=== PATIENT | female | born 1980 | race Caucasian/White ===

== ENCOUNTER → 2016-06-12 | Outpatient (CLI) | payer OTHER ==
[~2016-06-12] MED LIST: CEPH500T PO; PRENTAB26 PO
== END | disposition home or self-care (01) ==
LOC: C.PAPS 10:19
PROVIDERS: ATTEND Obstetrics & Gynecology
DX: Z01.419 Encounter for gynecological examination (general) (routine) without abnormal findings (principal)

== ENCOUNTER 2017-02-16 16:30 | Emergency (ER) | payer OTHER ==
[~2017-02-16] VITALS: Ht 157.5 cm; Wt 77.2 kg
[2017-02-16 16:45] VITALS: TEMP 36.9; Ht 157.5 cm; Wt 77.2 kg
[2017-02-16 17:45] LABS: BASO % 0.2 %; BASO ABS # 0.02 K/uL (0-0.2); COMPLETE YES; EOS % 0.3 %; HEMATOCRIT 42.7 % (37-47); IG% 0.2 %; LYMPH % 15.1 %; MEAN CELL VOLUME 87.5 fL (80-100); MEAN CORPUSCULAR HEMOGLOBIN 29.9 pg (25-34); MEAN CORPUSCULAR HGB CONC 34.2 g/dl (32-36); MEAN PLATELET VOLUME 8.7 fL (7.4-10.4); MONO % 3.8 %; NEUT % 80.4 %; PLATELET COUNT 260 K/uL (130-400); RED BLOOD COUNT 4.88 M/uL (4.2-5.4); WHITE BLOOD COUNT 12.57 K/uL (4.8-10.8)
[2017-02-16 18:05] LABS: BUN/CREATININE RATIO 21.1 (10-20); CALCIUM 9.3 mg/dl (8.5-10.1); CREATININE 0.67 mg/dl (0.60-1.20); POTASSIUM 3.7 mmol/L (3.5-5.1)
[2017-02-16 18:24] LABS: URINE APPEARANCE CLEAR (CLEAR); URINE BILIRUBIN NEG (NEG); URINE COLOR YELLOW; URINE EPITHELIAL CELL AUTO 0-5 /lpf (0-5); URINE NITRITE NEG (NEG); URINE PH 5.5 (4.5-7.5); URINE SPECIFIC GRAVITY 1.018 (1.000-1.030); UROBILINOGEN NEG (NEG); ZZUR CULT IF INDIC CLEAN CATCH NO
[2017-02-16 18:29] LABS: MANUAL MICROSCOPIC REQUIRED? NO; REVIEW REQ? NO
--- NOTE | 2017-02-16 20:03 | DIAGNOSTIC IMAGING REPORT ---
TRANSVAGINAL HISTORY: 37 years-old Female vaginal bleeding, LLQ paink, 5 wks acute left lower quadrant abdominal pain with . COMPARISON: None available. TECHNIQUE: Multiple real-time sonographic images of the deep pelvic structures were obtained transabdominally and transvaginally assessing grayscale appearance, color and spectral flow. FINDINGS: TRANSABDOMINAL: Heterogeneous appearance of the uterus is noted with multiple intramural fibroids. Endometrium measures 5 mm. Uterus measures 10.9 x 5.4 x 7.3 cm. Intramural fibroids are seen measuring up to 2.5 x 1.7 x 2.6 cm and 3.4 x 2.0 x 2.5 cm, some of which demonstrates some peripheral calcification. Left ovary measures 5.2 x 3.0 x 3.0 cm. Mildly complex cystic structure the left ovary measures 2.6 x 1.9 x 2.1 cm. Arterial inflow and venous outflow documented within the left ovary. Right ovary measures 3.3 x 1.5 x 1.7 cm with arterial inflow and venous outflow documented. TRANSVAGINAL: Uterus measures 9.6 x 6.5 x 7.9 cm, anteflexed. No intrauterine gestation identified. Myometrial heterogeneity is seen. Right ovary measures 4.2 x 1.6 x 3.2 cm there is of increased echogenicity. Arterial inflow documented. Left ovary measures 3.5 x 2.9 x 3.5 cm. Left corpus luteum measures up to 2.8 cm. Left uterine arterial inflow documented. No significant free pelvic fluid. IMPRESSION: 1. No intrauterine or extrauterine gestation identified. In the setting of positive qualitative beta hCG, this may be secondary to early normal , occult ectopic or recent spontaneous . Close follow-up with serial quantitative beta-hCG analysis and ultrasound imaging is needed. 2. Multiple intramural fibroids are seen as above, several of which are complex and partially calcified. 3. No evidence of ovarian torsion. Left corpus luteum, 2.8 cm. The above report was generated using voice recognition software. It may contain grammatical, syntax or spelling errors. Electronically signed by: Yonis Hernandez M.D. 02/16/2017 8:02 PM Dictated Date/Time: 02/16/2017 7:55 PM
[2017-02-16 20:38] VITALS: BP 130/96; PULSE 95; O2SAT 96
--- NOTE | 2017-02-16 20:39 | EMERGENCY ROOM VISIT NOTE ---
History First contact with patient: 17:15 Chief Complaint: ED VAG BLEEDING Stated Complaint: CRAMPING LEFT SIDE BLEEDING - POSSIBLE MISCARRIAGE History of Present Illness The patient is a 37 year old female who presents to the Emergency Room with complaints of vaginal bleeding and pelvic pain. The patient states that she had a positive test earlier this week. Her last menstrual period was 01/11/17. The patient has had some vaginal spotting for the past 2 days with increased bleeding this evening. She reports she has had some intermittent left lower abdominal aching which she rates a 3/10. Patient has seen Alexa Thompson SECURITY OPERATIONS MANAGER in the past. She reports 2 previous pregnancies, both of which went to term. No history of miscarriages. Patient does report a history of fibroids. She denies any urinary symptoms or vomiting. Review of Systems A complete 10 point review of systems was reviewed with the patient with pertinent positives and negatives as per history of present illness. All else were negative. Past Medical/Surgical History Medical Problems: (1) 39 weeks gestation of (2) Advanced maternal age in multigravida (3) AMA (advanced maternal age) multigravida 35+ (4) Gestational age, 21 weeks (5) Gestational diabetes (6) Gestational diabetes mellitus in , insulin controlled (7) Insulin controlled gestational diabetes mellitus in third trimester Family History Cancer Diabetes mellitus FH: heart disease Hypertension Social History Smoking Status: Former Smoker Alcohol Use: none Drug Use: none Marital Status: Housing Status: lives with family Occupation Status: employed Current/Historical Medications No Active Prescriptions or Reported Meds Physical Exam Vital Signs Date Time Temp Pulse Resp B/P (MAP) Pulse Ox O2 Delivery O2 Flow Rate FiO2 02/16/17 20:38 95 18 130/96 96 Room Air 02/16/17 19:24 101 20 127/84 96 Room Air 02/16/17 16:45 36.9 93 16 160/90 98 Room Air Physical Exam VITALS: Vitals are noted on the nurse's note and reviewed by myself. Vital signs stable. GENERAL: This is a 37-year-old female, in no acute distress, nondiaphoretic, well-developed well-nourished. HEART: Regular rate and rhythm without murmurs gallops or rubs. LUNGS: Clear to auscultation bilaterally without wheezes, rales or rhonchi. ABDOMEN: Positive bowel sounds x 4. Soft, nontender to palpation. NEURO: Patient was alert and oriented to person place and time. Medical Decision & Procedures ER Provider Diagnostic Interpretation: TRANSVAGINAL HISTORY: 37 years-old Female vaginal bleeding, LLQ paink, 5 wks acute left lower quadrant abdominal pain with . COMPARISON: None available. TECHNIQUE: Multiple real-time sonographic images of the deep pelvic structures were obtained transabdominally and transvaginally assessing grayscale appearance, color and spectral flow. FINDINGS: TRANSABDOMINAL: Heterogeneous appearance of the uterus is noted with multiple intramural fibroids. Endometrium measures 5 mm. Uterus measures 10.9 x 5.4 x 7.3 cm. Intramural fibroids are seen measuring up to 2.5 x 1.7 x 2.6 cm and 3.4 x 2.0 x 2.5 cm, some of which demonstrates some peripheral calcification. Left ovary measures 5.2 x 3.0 x 3.0 cm. Mildly complex cystic structure the left ovary measures 2.6 x 1.9 x 2.1 cm. Arterial inflow and venous outflow documented within the left ovary. Right ovary measures 3.3 x 1.5 x 1.7 cm with arterial inflow and venous outflow documented. TRANSVAGINAL: Uterus measures 9.6 x 6.5 x 7.9 cm, anteflexed. No intrauterine gestation identified. Myometrial heterogeneity is seen. Right ovary measures 4.2 x 1.6 x 3.2 cm there is of increased echogenicity. Arterial inflow documented. Left ovary measures 3.5 x 2.9 x 3.5 cm. Left corpus luteum measures up to 2.8 cm. Left uterine arterial inflow documented. No significant free pelvic fluid. IMPRESSION: 1. No intrauterine or extrauterine gestation identified. In the setting of positive qualitative beta hCG, this may be secondary to early normal , occult ectopic or recent spontaneous . Close follow-up with serial quantitative beta-hCG analysis and ultrasound imaging is needed. 2. Multiple intramural fibroids are seen as above, several of which are complex and partially calcified. 3. No evidence of ovarian torsion. Left corpus luteum, 2.8 cm. Laboratory Results 02/16/17 17:20 Red Blood Count 4.88, Mean Corpuscular Volume 87.5, Mean Corpuscular Hemoglobin 29.9, Mean Corpuscular Hemoglobin Concent 34.2, Mean Platelet Volume 8.7, Neutrophils (%) (Auto) 80.4, Lymphocytes (%) (Auto) 15.1, Monocytes (%) (Auto) 3.8, Eosinophils (%) (Auto) 0.3, Basophils (%) (Auto) 0.2, Neutrophils # (Auto) 10.10, Lymphocytes # (Auto) 1.90, Monocytes # (Auto) 0.48, Eosinophils # (Auto) 0.04, Basophils # (Auto) 0.02 02/16/17 17:20 Test 02/16/17 17:20 02/16/17 17:50 White Blood Count 12.57 K/uL (4.8-10.8) Red Blood Count 4.88 M/uL (4.2-5.4) Hemoglobin 14.6 g/dL (12.0-16.0) Hematocrit 42.7 % (37-47) Mean Corpuscular Volume 87.5 fL (80-100) Mean Corpuscular Hemoglobin 29.9 pg (25-34) Mean Corpuscular Hemoglobin Concent 34.2 g/dl (32-36) Platelet Count 260 K/uL (130-400) Mean Platelet Volume 8.7 fL (7.4-10.4) Neutrophils (%) (Auto) 80.4 % Lymphocytes (%) (Auto) 15.1 % Monocytes (%) (Auto) 3.8 % Eosinophils (%) (Auto) 0.3 % Basophils (%) (Auto) 0.2 % Neutrophils # (Auto) 10.10 K/uL (1.4-6.5) Lymphocytes # (Auto) 1.90 K/uL (1.2-3.4) Monocytes # (Auto) 0.48 K/uL (0.11-0.59) Eosinophils # (Auto) 0.04 K/uL (0-0.5) Basophils # (Auto) 0.02 K/uL (0-0.2) RDW Standard Deviation 41.4 fL (36.4-46.3) RDW Coefficient of Variation 12.9 % (11.5-14.5) Immature Granulocyte % (Auto) 0.2 % Immature Granulocyte # (Auto) 0.03 K/uL (0.00-0.02) Anion Gap 9.0 mmol/L (3-11) Est Creatinine Clear Calc Drug Dose 110.6 ml/min Estimated GFR () 130.1 Estimated GFR (Non- 112.3 BUN/Creatinine Ratio 21.1 (10-20) Calcium Level 9.3 mg/dl (8.5-10.1) Human Chorionic Gonadotropin, Quant 1054 mIU/mL Urine Color YELLOW Urine Appearance CLEAR (CLEAR) Urine pH 5.5 (4.5-7.5) Urine Specific [place] 1.018 (1.000-1.030) Urine Protein NEG (NEG) Urine Glucose (UA) NEG (NEG) Urine Ketones TRACE (NEG) Urine Occult Blood 2+ (NEG) Urine Nitrite NEG (NEG) Urine Bilirubin NEG (NEG) Urine Urobilinogen NEG (NEG) Urine Leukocyte Esterase NEG (NEG) Urine WBC (Auto) 0 /hpf (0-5) Urine RBC (Auto) 5-10 /hpf (0-4) Urine Hyaline Casts (Auto) 1-5 /lpf (0-5) Urine Epithelial Cells (Auto) 0-5 /lpf (0-5) Urine Bacteria (Auto) NEG (NEG) ED Course The patient was evaluated as above. Labs were drawn and IV access was obtained. Pelvic ultrasound was performed and read by radiology as above. Patient was reevaluated and findings were discussed. Case was discussed with Dr. Ralph of [facility] SECURITY OPERATIONS MANAGER. He recommended that the patient return in 48 hours for repeat quantitative beta-hCG. Discharge instructions were reviewed with the patient. The patient verbalized understanding of my assessment and treatment plan and was discharged home in good condition. Medical Decision Differential diagnosis includes early intrauterine , ectopic , spontaneous , among others. The patient is a 37-year-old female who presents today complaining of vaginal bleeding in the setting of early . Labs revealed a mild leukocytosis, possibly secondary to or stress. Quantitative beta-HCG was found to be 1054. Ultrasound was performed and was inconclusive. Fibroids were noted. Patient is blood type A+ and will not require RhoGAM. The case was discussed with the on-call physician for [facility] SECURITY OPERATIONS MANAGER, who recommended that the patient return here on Sunday evening (02/18/17) for a repeat quantitative beta-hCG. He recommended that the on-call SECURITY OPERATIONS MANAGER be consulted at that time. Findings were discussed and the patient was agreeable to this. Multiple questions were answered. The patient was educated regarding pelvic rest. She was advised to return here for worsening pain, vomiting, worsening bleeding or any other new/concerning symptoms. Based on the patient's presentation and work up, I feel the patient is stable for outpatient treatment. The patient was educated to return to the emergency department for any worsening of their current condition or new/concerning symptoms. She will return here in 48 hours for follow-up. Medication Reconcilliation Current Medication List: was personally reviewed by me Blood Pressure Screening Patient's blood pressure: Elevated blood pressure Blood pressure disposition: Elevated BP felt to be situational Impression Primary Impression: Threatened miscarriage in early Departure Information Dispostion Home / Self-Care Condition GOOD Prescriptions No Active Prescriptions or Reported Meds Referrals Laurie Corbin M.D. (PCP) Aren Ralph M.D. Patient Instructions My [facility] Additional Instructions Return to the emergency department Sunday evening (02/18/17) for a repeat hormone level. Pelvic rest: Nothing in the vagina (tampons, intercourse) until cleared by OB/ CUTTING MACHINE OPERATOR HELPER. Return to the emergency department sooner for worsening bleeding, worsening pain , vomiting or any other new/concerning symptoms.
== END 2017-02-16 21:05 | disposition home or self-care (01) ==
LOC: C.EDB 16:32 → C.EDA 21:05
DX: O20.0 Threatened abortion (principal); Z3A.01 Less than 8 weeks gestation of pregnancy; D25.9 Leiomyoma of uterus, unspecified; Z87.891 Personal history of nicotine dependence; Z83.3 Family history of diabetes mellitus; Z82.49 Family history of ischemic heart disease and other diseases of the circulatory system

== ENCOUNTER 2017-02-18 16:32 | Emergency (ER) | payer OTHER ==
[~2017-02-18] VITALS: Ht 154.9 cm; Wt 77.7 kg
[2017-02-18 16:35] VITALS: TEMP 36.7; Ht 154.9 cm; Wt 77.7 kg
--- NOTE | 2017-02-18 16:56 | EMERGENCY ROOM VISIT NOTE ---
History First contact with patient: 16:35 Chief Complaint: OTHER COMPLAINT Stated Complaint: HORMONE RECHECK History of Present Illness The patient is a 37 year old female who presents to the Emergency Room for a recheck of her quantitative beta hCG. The patient was here 2 days ago due to vaginal bleeding in early and instructed to return here for a repeat hCG. She states that the bleeding has slowed and she now just has a small amount of blood on the toilet paper when wiping. She still has some mild left lower abdominal pain, but states this has improved since she was last seen here. Review of Systems A complete 10 point review of systems was reviewed with the patient with pertinent positives and negatives as per history of present illness. All else were negative. Past Medical/Surgical History Medical Problems: (1) 39 weeks gestation of (2) Advanced maternal age in multigravida (3) AMA (advanced maternal age) multigravida 35+ (4) Gestational age, 21 weeks (5) Gestational diabetes (6) Gestational diabetes mellitus in , insulin controlled (7) Insulin controlled gestational diabetes mellitus in third trimester Family History Cancer Diabetes mellitus FH: heart disease Hypertension Social History Smoking Status: Never Smoker Alcohol Use: none Drug Use: none Marital Status: Housing Status: lives with family Occupation Status: employed Current/Historical Medications No Active Prescriptions or Reported Meds Physical Exam Vital Signs Date Time Temp Pulse Resp B/P (MAP) Pulse Ox O2 Delivery O2 Flow Rate FiO2 02/18/17 17:41 86 20 141/90 97 02/18/17 16:35 36.7 101 20 148/81 98 Room Air Physical Exam VITALS: Vitals are noted on the nurse's note and reviewed by myself. Vital signs stable. GENERAL: This is a 37-year-old female, in no acute distress, nondiaphoretic, well-developed well-nourished. HEART: Regular rate and rhythm without murmurs gallops or rubs. LUNGS: Clear to auscultation bilaterally without wheezes, rales or rhonchi. ABDOMEN: Soft, nontender without masses. NEURO: Patient was alert and oriented to person place and time. Medical Decision & Procedures Laboratory Results Test 02/18/17 16:44 Human Chorionic Gonadotropin, Quant 514 mIU/mL Medical Decision Differential diagnosis includes threatened , spontaneous , bleeding during early , among others. The patient was evaluated as above. The patient was seen by myself 2 days ago. Repeat beta-hCG was performed and was found to be 514, decreased from 1054 two days ago. Case was discussed with the on-call [facility] LINE WORKER, Dr. Fields. She states the office will call the patient this week to schedule a follow-up appointment. She will need weekly beta hCGs until her hCG is 0. Patient was informed of this. She was reassured. She verbalized understanding and was discharged home in good condition. Medication Reconcilliation Current Medication List: was personally reviewed by me Blood Pressure Screening Patient's blood pressure: Elevated blood pressure Blood pressure disposition: Elevated BP felt to be situational Impression Primary Impression: Spontaneous Departure Information Dispostion Home / Self-Care Condition GOOD Prescriptions No Active Prescriptions or Reported Meds Referrals Laurie Corbin M.D. (PCP) Patient Instructions My [facility] Additional Instructions The LINE WORKER office will call you this week to schedule follow-up. Return here for increased pain, very heavy vaginal bleeding, fevers or any other /concerning symptoms.
[2017-02-18 17:41] VITALS: BP 141/90; PULSE 86; O2SAT 97
== END 2017-02-18 17:43 | disposition home or self-care (01) ==
LOC: C.EDB 16:33 → C.EDD 17:43
DX: O03.9 Complete or unspecified spontaneous abortion without complication (principal); Z80.9 Family history of malignant neoplasm, unspecified; Z83.3 Family history of diabetes mellitus; Z82.49 Family history of ischemic heart disease and other diseases of the circulatory system

== ENCOUNTER → 2017-02-24 | Outpatient (CLI) | payer OTHER | END | disposition home or self-care (01) | LOC: C.LAB 10:27 | PROVIDERS: ATTEND Obstetrics & Gynecology | DX: O02.1 Missed abortion (principal) ==

== ENCOUNTER → 2017-02-26 | Outpatient (CLI) | payer OTHER | END | disposition home or self-care (01) | LOC: C.LAB1850 11:26 | PROVIDERS: ATTEND Obstetrics & Gynecology | DX: O02.1 Missed abortion (principal) ==

== ENCOUNTER → 2017-10-05 | Outpatient (CLI) | payer OTHER | END | disposition home or self-care (01) | LOC: C.PAPS 14:05 | PROVIDERS: ATTEND Obstetrics & Gynecology | DX: Z01.419 Encounter for gynecological examination (general) (routine) without abnormal findings (principal) ==

== ENCOUNTER → 2017-12-29 | Outpatient (CLI) | payer OTHER | END | disposition home or self-care (01) | LOC: C.LAB 09:00 | PROVIDERS: ATTEND Student in an Organized Health Care Education/Training Program | DX: Z78.9 Other specified health status (principal) ==

== ENCOUNTER 2018-11-20 07:51 | Inpatient (IN) ==
[2018-11-20] MEDS ORDERED: OXYTOCIN 30 UNITS/500 ML BAG IV PRN ×3 (09:10→20:18)
[2018-11-20 09:42] LABS: Hematocrit (blood only) 34.1 % (37-47); Hemoglobin 11.8 g/dL (12.0-16.0); Mean Platelet Volume 10.4 fL (7.4-10.4); Platelet Count 123 K/uL (130-400); RDW Coefficient of Variation 13.2 % (11.5-14.5); RDW Standard Deviation 41.5 fL (36.4-46.3); Red Blood Count 3.92 M/uL (4.2-5.4); White Blood Count 8.22 K/uL (4.8-10.8)
[2018-11-20 09:43] LABS: Mean Corpuscular Hgb Conc 34.6 g/dL (32-36)
--- NOTE | 2018-11-20 09:49 | History & Physical Report ---
Date of Service November 20, 2018 Assessment & Plan (1) Insulin controlled gestational diabetes mellitus in third trimester: check BSG's every 4 hours or PRN Present on Admission?: Yes (2) Chronic hypertension in obstetric context in third trimester: begin pitocin augmentation of labor would like epidural analgesia when painful anticipate vaginal . Present on Admission?: Yes History of Present Illness Primary Care Provider: Laurie Corbin MD Patient is a 38 yo white female EDC 11/29/18 who presents at 38 5/7 weeks for IOL because of chronic hypertension & GDM on insulin. blood pressure did not require anti-hypertensive therapy. Blood sugars have been WNL. growth scans also have been normal. GBS negative. Allergies Allergy/AdvReac Type Severity Reaction Status Date / Time No Known Allergies Allergy Verified 11/12/18 11:12 Home Medications Home Medications Medication Instructions Recorded Confirmed Type ranitidine HCl [Zantac 75] 75 mg PO DAILY PRN 11/12/18 11/12/18 History vit-iron fum-folic ac 1 tab PO DAILY 11/20/18 11/20/18 History [ Vitamin] Patient History Medical History History of tooth extraction No known health problems Social History Preferred Language: Macedonian Mainframe Systems Administrator Required: No Beliefs That Will Affect Care: None marital status: Current Living Situation: Spouse Other Information That Helps Us Care for You: No Feels Safe at Home: Yes Safety Concerns: Feels Safe At This Time Smoking Status: Former smoker Smoking End Date: 1999 Second Hand Exposure: No Hx Alcohol Use: No Hx Substance Use: No Review of Systems All systems reviewed & are unremarkable except as noted in HPI & below Physical Exam Constitutional: WD/WN, vitals as above Respiratory: normal respiratory effort, lungs clear to auscultation Cardiovascular: RRR, no murmur, no edema Gastrointestinal (Abdomen): normal bowel sounds, soft, nontender, no hepatosplenomegaly Musculoskeletal: no cyanosis or clubbing, extremities motor strength 5/5 no calf tenderness Genitourinary: OB Exam Abdomen: + vertex (by sonogram & exam), + estimated weight (7-8 pounds) and + regular contractions (every 3 minutes mild) Manual OB Exam: + cervical dilation 2 cm, + cervical effacement 50% and + station high OB Exam Monitor Tracing: + external FHT monitor used, + category I and + normal FHT variability Results & Data Vital Signs (Past 12 Hours) Vital Signs Temp Pulse Resp BP 11/20/18 08:40 37.0 C 20 11/20/18 08:05 37.0 C 79 20 129/74
[2018-11-20] MEDS: LACTATED RINGER'S 1,000 ML IV PRN ×3 (10:03→19:10)
[2018-11-20] MEDS ORDERED: ePHEDrine sulfate 50 MG/ML AMP ONE (14:29)
[2018-11-20] MEDS ORDERED: fentaNYL citrate 100 MCG/2 ML VIAL ONE (14:29)
[2018-11-20] MEDS ORDERED: BUPIVACAINE 0.25% 30 ML VIAL ONE (14:29)
[2018-11-20] MEDS ORDERED: fentaNYL 2MCG/ML ROPIV 1.25MG/ML 100 ML BAG EPI ONE (14:30)
[2018-11-20] MEDS ORDERED: PROMETHAZINE HCL 6.25 MG in SODIUM CHLORIDE 0.9% 50 ML IV PRN (15:46)
[2018-11-20] MEDS ORDERED: fentaNYL 2MCG/ML ROPIV 1.25MG/ML 100 ML BAG EPI PRN (15:46)
[2018-11-20] MEDS ORDERED: DiphenhydrAMINE HCL 50 MG/ML VIAL IV PRN (15:46)
[2018-11-20] MEDS ORDERED: NALBUPHINE HCL INJ 10 MG/ML AMP IV PRN (15:46)
[2018-11-20] MEDS ORDERED: ONDANSETRON INJ 2 MG/ML 2 ML VIAL IV PRN (15:46)
[2018-11-20] MEDS ORDERED: NALOXONE HCL 1 MG in SODIUM CHLORIDE 0.9% 1000ML 1,000 ML IV PRN (15:46)
[2018-11-20] MEDS ORDERED: ePHEDrine sulfate 50 MG/ML AMP IV PRN (15:46)
[2018-11-20] MEDS ORDERED: NALOXONE HCL 0.4 MG/1 ML VIAL/CARP IV PRN (15:46)
--- NOTE | 2018-11-20 15:46 | Anesthesiology Consultation ---
Date of Service November 20, 2018 Assessment & Plan (1) Encounter for pre-operative examination: Chart Review Chart Review: Patient NOT seen in Pre Admission Testing and Acceptable Risk for Labor Epidural Consults Requested none ASA ASA2 Proposed Anesthesia Anesthesia Type: Labor Epidural Risk / Benefits Reviewed With: PT / POA / Parent / Guardian, Accepts Plan and Informed Consent Obtained History Height/Weight Height: 5 ft 1 in Weight: 84.368 kg Allergies Allergy/AdvReac Type Severity Reaction Status Date / Time No Known Allergies Allergy Verified 11/12/18 11:12 Medications Home Medications Medication Instructions Recorded Confirmed Last Taken ranitidine HCl [Zantac 75] 75 mg PO DAILY PRN 11/12/18 11/20/18 11/17/18 21:30 insulin NPH isoph U-100 human 15 unit SUBCUT HS MDD SLIDING SCALE 11/20/18 11/20/18 11/19/18 21:00 [Humulin N NPH Insulin KwikPen] vit-iron fum-folic ac 1 tab PO DAILY 11/20/18 11/20/18 11/19/18 21:00 [ Vitamin] Active Medications Generic Name Dose Route Start Last Admin Trade Name Freq PRN Reason Stop Dose Admin Lactated Ringer's 1,000 mls @ 125 mls/hr 11/20/18 09:10 11/20/18 15:13 Lr IV 11/22/18 09:09 125 mls/hr .Q8H PRN Infusion L&D Protocol Protocol Oxytocin 30 units in 500 mls @ 11 mls/hr 11/20/18 09:13 11/20/18 14:52 Pitocin IV 11/22/18 09:12 0.66 units/hr .Q24H PRN 11 mls/hr Labor Induction/Augmentation Titration Protocol 0.66 UNITS/HR NPO Date Last Intake of Fluids: 11/20/18 Time Last Intake of Fluids: 14:00 Date Last Intake of Solids: 11/20/18 Time Last Intake of Solids: 06:00 Past Medical History Medical History History of tooth extraction No known health problems Exercise / Class Metabolic Activity II 4-5 Yardwork/Stairs/Walk up hill Past Surgical History Surgical History Hx of myringotomy Past Anesthesia History No Hx of Anesthesia Complications and No Family Hx of Anesthesia Complications History of PONV No Hx of PONV and No Hx of Motion Sickness Social History Smoking Status: Former smoker Smoking End Date: 1999 Hx Alcohol Use: No Hx Substance Use: No substance use type: does not use Physical Exam Vital Signs Last Vital Signs Temp 36.9 C 11/20/18 15:00 Pulse 72 11/20/18 15:41 Resp 20 11/20/18 15:00 BP 101/58 L 11/20/18 15:40 Pulse Ox 99 11/20/18 15:41 ENMT Mouth: no dentition abnormality Thyromental Distance: > or= 3.5 Finger Breadths Mallampati Class: II Neck normal visual inspection Respiratory normal respiratory effort Auscultation: lungs clear to auscultation bilaterally Cardiovascular Rate/Rhythm: regular rate and regular rhythm Psychiatric Orientation: alert Testing Laboratory Results 11/20/18 09:31 11/20/18 11/20/18 14:54 10:51 POC Glucose 70 71
--- NOTE | 2018-11-20 19:43 | Anesthesiology Progress Note ---
Date of Service November 20, 2018 Subjective Patient fully dilated and pushing unsuccessfully. She complains of a spot of pain on her R lower abdomen. According to OB, the baby is possibly OP and asynclytic. Bolused the patient with 10cc of 1% lidocaine and increased continuous dose to 12cc/hr. Plan to otherwise continue epidural as previous. Physical Exam Vital Signs: Last Vital Signs Temp 36.8 C 11/20/18 18:00 Pulse 82 11/20/18 19:39 Resp 24 11/20/18 19:15 BP 142/80 H 11/20/18 19:39 Pulse Ox 99 11/20/18 19:37 Results & Data Medications Administered Lactated Ringer's (Lr) 1,000 mls @ 125 mls/hr IV .Q8H PRN; Protocol PRN Reason: L&D Protocol Stop: 11/22/18 09:09 Last Admin: 11/20/18 19:10 Dose: 125 mls/hr Documented by: [id number] Infusion: 11/20/18 18:42 Dose: 125 mls/hr Documented by: [id number] Infusion: 11/20/18 15:13 Dose: 125 mls/hr Documented by: [id number] Infusion: 11/20/18 14:52 Dose: 999 mls/hr Documented by: [id number] Admin: 11/20/18 14:39 Dose: 999 mls/hr Documented by: [id number] Infusion: 11/20/18 14:37 Dose: 999 mls/hr Documented by: [id number] Infusion: 11/20/18 14:07 Dose: 999 mls/hr Documented by: [id number] Admin: 11/20/18 10:03 Dose: 125 mls/hr Documented by: [id number] Oxytocin (Pitocin) 30 units in 500 mls @ 17 mls/hr IV .Q24H PRN; Protocol PRN Reason: Labor Induction/Augmentation Stop: 11/22/18 09:12 Last Titration: 11/20/18 19:18 Dose: 1.02 units/hr, 17 mls/hr Documented by: [id number] Titration: 11/20/18 17:55 Dose: 0.9 units/hr, 15 mls/hr Documented by: [id number] Titration: 11/20/18 16:27 Dose: 0.78 units/hr, 13 mls/hr Documented by: [id number] Titration: 11/20/18 14:52 Dose: 0.66 units/hr, 11 mls/hr Documented by: [id number] Titration: 11/20/18 13:32 Dose: 0.66 units/hr, 11 mls/hr Documented by: [id number] Titration: 11/20/18 12:53 Dose: 0.54 units/hr, 9 mls/hr Documented by: [id number] Titration: 11/20/18 12:09 Dose: 0.42 units/hr, 7 mls/hr Documented by: [id number] Titration: 11/20/18 11:34 Dose: 0.3 units/hr, 5 mls/hr Documented by: [id number] Titration: 11/20/18 10:59 Dose: 0.18 units/hr, 3 mls/hr Documented by: [id number] Admin: 11/20/18 10:16 Dose: 0.06 units/hr, 1 mls/hr Documented by: [id number] Cosigned by: [id number]
[2018-11-20] MEDS ORDERED: DIPHTHERIA/TETANUS/PERTUSSIS 0.5 ML SYR/VIAL IM ONE (20:18)
[2018-11-20] MEDS ORDERED: BENZOCAINE 20% AER SPR 82.5 GM CAN EXT PRN (20:18)
[2018-11-20] MEDS ORDERED: BISACODYL 10 MG SUPP PR PRN (20:18)
[2018-11-20] MEDS ORDERED: ACETAMINOPHEN 325 MG TAB PO PRN (20:18)
[2018-11-20] MEDS ORDERED: HYDROCORTISONE ACETATE 25 MG SUPP PR PRN (20:18)
[2018-11-20] MEDS ORDERED: OXYCODONE/ACETAMINOPHEN 5mg/325mg TAB PO PRN (20:18)
[2018-11-20] MEDS ORDERED: SUPERCREAM 0.870% 15 GM JAR EXT PRN (20:18)
--- NOTE | 2018-11-20 23:45 | Anesthesia Procedure Note ---
Date of Service November 20, 2018 Anesthesia Post Epidural Note Vital Signs Vital Signs: Temp Pulse Resp BP Pulse Ox 36.8 C 71 20 122/71 98 11/20/18 20:13 11/20/18 21:56 11/20/18 20:58 11/20/18 21:56 11/20/18 20:12 Pain Intensity Right Hip: Pain Intensity: 9 Notes Mental Status: alert / awake / arousable Nausea / Vomiting: adequately controlled Pain: adequately controlled Airway Patency, RR, SpO2: stable & adequate BP & HR: stable & adequate Hydration State: stable & adequate Neuraxial Anesthesia: was administered and sensory block is resolving Anesthetic Complications: no major complications apparent and Pt Satisfied with anesthetic care Epidural: Removed without complications and With tip intact
--- NOTE | 2018-11-21 00:13 | Delivery Summary ---
DATE OF OPERATION: 11/20/2018 DATE OF DELIVERY: 11/20/2018 The patient is a 38-year-old, 4, para 2-0-1-2 white female, EDC 11/29/2018, who presents at 38-5/7 weeks for induction of labor because of chronic hypertension and GDM on insulin. For blood pressure, did not require antihypertensive therapy. She had Pitocin induction. Membranes were ruptured at approximately 4 cm dilated for clear fluid. She progressed to full dilation and pushed effectively over intact perineum over a mediolateral episiotomy for delivery of a viable female infant. Mouth and nasopharynx were suctioned on the perineum. The mediolateral episiotomy was done because of significant patient discomfort from pressure of the head. The rest of the infant delivered easily and was placed on mother's abdomen for further attention and drying. The was vigorous and moving all 4 limbs. After 30 seconds, the cord was clamped and cut. The placenta was expressed intact with a 3-vessel cord. The second-degree mediolateral episiotomy was repaired with 3-0 chromic in the usual fashion. Estimated blood loss was 200 mL. bleeding was controlled with dilute Pitocin. Mother and are doing well after delivery. I attest to the content of the Intraoperative Record and any orders documented therein. Any exception s are noted below.
[2018-11-21] MEDS: IBUPROFEN 600 MG TAB PO PRN ×3 (01:41→20:20)
--- NOTE | 2018-11-21 06:37 | Obstetrical Progress Note ---
Date of Service November 21, 2018 Assessment & Plan (1) Encounter for care and examination after delivery: satisfactory course continue current care plan Present on Admission?: No Day #:: 1 Subjective Ambulation: ambulating normally Voiding: no voiding problems Passing Gas:: Yes Diet Tolerance:: regular diet Lochia:: Moderate Feeding Type:: breast feeding Review of Systems All systems reviewed & are unremarkable except as noted in HPI & below Physical Exam Constitutional WD/WN, vitals as above Gastrointestinal (Abdomen) normal bowel sounds, soft, nontender, no hepatosplenomegaly Musculoskeletal no cyanosis or clubbing, extremities motor strength 5/5 no calf tenderness Genitourinary OB Exam Abdomen: + fundal height Fundus: + firm and + relation to umbilicus (1 below U) Results & Data Vital Signs (Past 12 Hours) Vital Signs Temp Pulse Pulse Resp BP BP Pulse Ox 11/21/18 04:20 36.7 C 67 18 115/74 97 11/20/18 23:25 36.6 C 74 18 109/64 97 11/20/18 21:56 71 122/71 11/20/18 21:43 71 118/70 11/20/18 21:28 74 118/65 11/20/18 21:13 86 128/66 11/20/18 20:58 80 20 132/70 11/20/18 20:43 80 18 128/70 11/20/18 20:29 75 126/73 11/20/18 20:28 20 11/20/18 20:13 36.8 C 81 20 120/62 11/20/18 20:12 83 98 11/20/18 20:07 81 129/67 98 11/20/18 20:02 83 98 11/20/18 19:57 114 H 99 11/20/18 19:52 95 H 141/79 H 99 11/20/18 19:51 110 H 91 11/20/18 19:47 120 H 93 11/20/18 19:45 22 11/20/18 19:42 110 H 98 11/20/18 19:39 82 142/80 H 11/20/18 19:37 112 H 99 11/20/18 19:34 101 H 91 11/20/18 19:32 117 H 100 11/20/18 19:27 81 99 11/20/18 19:23 77 133/70 11/20/18 19:22 80 99 11/20/18 19:21 95 H 91 11/20/18 19:17 96 H 87 L 11/20/18 19:15 24 11/20/18 19:12 75 99 11/20/18 19:10 101 H 94 11/20/18 19:08 74 135/64 11/20/18 19:07 88 100 11/20/18 19:02 93 H 97 11/20/18 19:00 76 26 H 91 11/20/18 18:57 70 99 11/20/18 18:54 80 90 11/20/18 18:52 71 131/66 11/20/18 18:51 84 100 11/20/18 18:49 85 88 L 11/20/18 18:46 62 98 11/20/18 18:41 73 98 11/20/18 18:37 63 126/71 11/20/18 18:36 70 99
[2018-11-21 07:53] LABS: Hematocrit (blood only) 37.2 % (37-47); Mean Corpuscular Hgb Conc 34.9 g/dL (32-36); Mean Corpuscular Volume 88.6 fL (80-100); Mean Platelet Volume 10.7 fL (7.4-10.4); Platelet Count 153 K/uL (130-400); RDW Coefficient of Variation 13.2 % (11.5-14.5); RDW Standard Deviation 42.4 fL (36.4-46.3); White Blood Count 11.69 K/uL (4.8-10.8)
[2018-11-21] MEDS: PRENATAL VITAMIN 1 TAB PO SCH (09:39)
[2018-11-21] MEDS: DOCUSATE SODIUM 100 MG CAP PO SCH ×2 (09:39→20:16)
[2018-11-21] MEDS ORDERED: BISACODYL 5 MG TABEC PO SCH (20:00)
[2018-11-22 06:26] LABS: Hematocrit (blood only) 31.7 % (37-47); Hemoglobin 10.8 g/dL (12.0-16.0)
--- NOTE | 2018-11-22 08:23 | Obstetrical Progress Note ---
Date of Service November 22, 2018 Assessment & Plan (1) Encounter for care and examination after delivery: stable, ready for discharge. f/u 6 wks pp check. instructions reviewed. Subjective doing well, ready for discharge. eating, voiding, ambulating without problem. . Physical Exam Constitutional: WD/WN, vitals as above Respiratory: normal respiratory effort, lungs clear to auscultation Cardiovascular: Rate/Rhythm: regular rate and regular rhythm Gastrointestinal (Abdomen): ff 2 down nontender. Musculoskeletal: nt calves Results & Data Vital Signs (Past 12 Hours) Vital Signs Temp Pulse Resp BP 11/21/18 23:44 36.3 C L 66 18 131/81
[2018-11-22] MEDS: PRENATAL VITAMIN 1 TAB PO SCH (08:26)
[2018-11-22] MEDS: DOCUSATE SODIUM 100 MG CAP PO SCH (08:26)
== END 2018-11-22 14:44 | disposition home or self-care (01) | DRG 806 ==
LOC: 4S1 07:51 → 4S2 23:10